=== PATIENT | male | born 1960 | race Caucasian/White ===

== ENCOUNTER 2018-07-20 13:39 | Emergency (ER) | payer SELFPAY ==
[~2018-07-20] VITALS: Ht 170.2 cm; Wt 86.4 kg
[2018-07-20] MEDS ORDERED: CHOLESTEROL PO (13:46)
[2018-07-20] MEDS ORDERED: METF-960 PO (13:46)
[2018-07-20] MEDS ORDERED: HTN PO (13:46)
[2018-07-20 14:58] LABS: GLUCOSE,POINT OF CARE 97 MG/DL (70-110)
[2018-07-20] MEDS ORDERED: LIDOCAINE/PF 1% 5 ML VIAL INJ ONE (15:30)
[2018-07-20] MEDS ORDERED: PERTUSS(ACELL),DIPH,TET VAC/PF 0.5 ML VIAL IM ONE (15:30)
[2018-07-20 16:23] VITALS: BP 142/80
[2018-07-20] MEDS ORDERED: BACITRACIN 0.9 GM PACKET OINTMENT TP ONE (16:30)
== END 2018-07-20 16:26 | disposition home or self-care (01) ==
LOC: EMS 13:40
DX: S81.811A Laceration without foreign body, right lower leg, initial encounter (principal); I10 Essential (primary) hypertension; E11.9 Type 2 diabetes mellitus without complications; E78.00 Pure hypercholesterolemia, unspecified; Z79.84 Long term (current) use of oral hypoglycemic drugs; W25.XXXA Contact with sharp glass, initial encounter; Y93.89 Activity, other specified; Y92.89 Other specified places as the place of occurrence of the external cause; Y99.8 Other external cause status
CPT/HCPCS: 12002; 82962; 90471; 90715; 99283; J3490

== ENCOUNTER 2021-06-30 13:27 | Emergency (ER) | payer MEDICAID, OTHER ==
[~2021-06-30] VITALS: Ht 170.2 cm; Wt 93.6 kg
[~2021-06-30 13:27] MED LIST: CHOLESTEROL PO; HTN PO; METF-1211 PO
[2021-06-30 14:39] VITALS: BP 138/101
[2021-06-30 14:50] LABS: GLUCOMETER DEV NAME(LOC) ERT.5; GLUCOSE,POINT OF CARE 202 MG/DL (70-110)
== END 2021-06-30 15:35 | disposition home or self-care (01) ==
LOC: EMS 13:27
DX: K04.7 Periapical abscess without sinus (principal); E11.9 Type 2 diabetes mellitus without complications; E78.00 Pure hypercholesterolemia, unspecified; I10 Essential (primary) hypertension; Z79.84 Long term (current) use of oral hypoglycemic drugs
CPT/HCPCS: 82962; 99283